=== PATIENT | male | born 1990 | race Caucasian/White ===

== ENCOUNTER 2017-12-14 12:39 | Inpatient (IN) | payer OTHER ==
[2017-12-14 13:15] LABS: BASO # 0.1 K/uL (0.0-0.2); EOS # 0.1 K/uL (0.0-0.7); EOS % 1.1 % (0.0-4.0); HEMOGLOBIN 15.4 g/dL (12.0-18.0); LYMPH # 2.4 K/uL (1.0-4.3); LYMPH % 21.9 % (20.0-40.0); MEAN CELL VOLUME 89.8 fL (80.0-94.0); MEAN CORPUSCULAR HEMOGLOBIN 31.3 pg (27.0-31.0); MEAN CORPUSCULAR HGB CONC 34.9 g/dL (33.0-37.0); MEAN PLATELET VOLUME 7.3 fL (7.2-11.7); MONO # 0.8 K/uL (0.0-0.8); NEUT # 7.4 K/uL (1.8-7.0); RBC 4.94 Mil/uL (4.40-5.90); RED CELL DISTRIBUTION WIDTH 13.1 % (11.5-14.5); WHITE BLOOD COUNT 10.8 K/uL (4.8-10.8)
[2017-12-14 13:17] LABS: URINE BILIRUBIN NEGATIVE (NEGATIVE); URINE BLOOD NEGATIVE (NEGATIVE); URINE CLARITY Clear (Clear); URINE COLOR Amber (YELLOW); URINE GLUCOSE (UA) NORMAL (Normal); URINE LEUKOCYTE ESTERASE NEG Leu/uL (Negative); URINE PROTEIN NEGATIVE (NEGATIVE); URINE UROBILINOGEN NORMAL mg/dL (0.2-1.0)
[2017-12-14 13:30] LABS: ALB/GLOB RATIO 1.3 (1.0-2.1); ALBUMIN 4.6 g/dL (3.5-5.0); ALT/SGPT 276 U/L (21-72); AST/SGOT 149 U/L (17-59); BLOOD UREA NITROGEN 18 mg/dL (9-20); CALCIUM 9.2 mg/dl (8.6-10.4); GFR AFRICAN-AMERICAN > 60; GFR NON-AFRICAN AMERICAN > 60
[2017-12-14 13:31] LABS: BARBITURATES, UR NEGATIVE (NEGATIVE); BENZODIAZEPINES, UR NEGATIVE (NEGATIVE); PHENCYCLIDINE, UR NEGATIVE (NEGATIVE)
[2017-12-14 13:32] LABS: OPIATES, UR POSITIVE (NEGATIVE)
--- NOTE | 2017-12-14 14:05 | C.PDOC ---
History Of Present Illness 27 year old male presents to the ED as a prescreen for heroin detox. Patient states he normally uses around 8-12 bags intravenously per day. He states his last use was around 12 hours ago. Patient also admits to cocaine use, states he drinking socially, and admits to smoking. Patient denies any physical complaints or medical issues at this time. Chief Complaint (Nursing): Substance Abuse History Per: Patient History/Exam Limitations: no limitations Onset/Duration Of Symptoms: Hrs (12) Current Symptoms Are (Timing): Still Present Suicide/Self Injury Attempted (Context): None Modifying Factor(s): Narcotics (heroin), Cocaine Associated Symptoms: denies: Suicidal Thoughts, Suicidal Plan Involuntary Hold By: None Recent travel outside of the [place]: No Additional History Per: Patient Past Medical History Reviewed: Historical Data, Nursing Documentation, Vital Signs Vital Signs: Last Vital Signs Temp 98.2 F 12/14/17 15:19 Pulse 65 12/14/17 15:19 Resp 18 12/14/17 15:19 BP 125/86 12/14/17 15:19 Pulse Ox 99 12/14/17 15:19 - Medical History PMH: No Chronic Diseases Denies: Diabetes, Hepatitis, HIV, HTN, Seizures, Sexually Transmitted Disease Surgical History: No Surg Hx Family History: States: Unknown Family Hx - Social History Hx Tobacco Use: Yes Hx Alcohol Use: Yes Hx Substance Use: Yes - Immunization History Hx Tetanus Toxoid Vaccination: Yes Hx Influenza Vaccination: Yes Hx Pneumococcal Vaccination: No Review Of Systems Psych: Positive for: Other (heroin detox ). Negative for: Suicidal ideation Physical Exam - Physical Exam Appears: Non-toxic, No Acute Distress Skin: Normal Color, Warm, Dry Head: Atraumatic, Normacephalic Eye(s): bilateral: Normal Inspection Oral Mucosa: Moist Neck: Supple Chest: Symmetrical, No Deformity, No Tenderness Cardiovascular: Rhythm Regular, No Murmur Respiratory: Normal Breath Sounds, No Rales, No Rhonchi, No Wheezing Extremity: Normal ROM, Capillary Refill (less than 2 seconds ) Neurological/Psych: Oriented x3, Normal Speech, Normal Cognition ED Course And Treatment - Laboratory Results Result Diagrams: 12/14/17 13:10 12/14/17 13:10 O2 Sat by Pulse Oximetry: 97 (on RA) Pulse Ox Interpretation: Normal Medical Decision Making Medical Decision Making: Impression: 27 year old male requesting heroin detox Plan: * bloodwork * urinalysis * reassess and disposition Progress: Bloodwork and UA ordered and reviewed. Patient has been medically cleared. Disposition - Disposition Disposition: HOSPITALIZED Disposition Time: 14:40 Condition: STABLE - Clinical Impression Clinical Impression: Drug dependence, Drug abuse - Scribe Statement The provider has reviewed the documentation as recorded by the Scribe (Haylie Joshi) Provider Attestation: All medical record entries made by the Scribe were at my direction and personally dictated by me. I have reviewed the chart and agree that the record accurately reflects my personal performance of the history, physical exam, medical decision making, and the department course for this patient. I have also personally directed, reviewed, and agree with the discharge instructions and disposition.
--- NOTE | 2017-12-14 14:46 | PCM.BM ---
<Arturo Amador - Last Filed: 12/14/17 14:43> Treatment Plan Problems - Problems identified on initial assessmt potential for opiate withdrawal Date Initiated: 12/14/17 Time Initiated: 14:30 Status: Active Treatment assets and liabiliti Patient Assests: cooperative, self-reliant, ADL independent, cognitively intact Patient Liabilities: live alone, poor support system, substance abuse - Milieu Protocol Maintain good personal hygiene: daily Encourage regular showers, daily Remind patient to perform daily oral care, daily Assist patient to perform ADL's Conduct patient checks and document Observation sheet: Q15 minutes Maintain personal safety: every shift Educate patient to report safety concerns to staff, every shift Monitor environment for contraband/sharps Medication safety: Monitor for expected outcome, potential side effects: daily, Assess barriers to learning: daily, Assess readiness for medication education: daily <Barb Bruner - Last Filed: 12/15/17 09:55> - Diagnosis (1) Opioid use disorder, severe, dependence Status: Acute Interventions: 12/15/17 09:55 * Assess 7x/week regarding severity of withdrawal * Educate regarding risks, benefits, side effects and alternatives of medications * Use Motivational Interviewing for abstinence * Use CBT for relapse prevention * Medication management for withdrawal symptoms * Encourage medication assisted treatment * (2) Alcohol use disorder, severe, dependence Status: Acute Interventions: 12/15/17 09:55 * Assess 7x/week regarding severity of withdrawal * Educate regarding risks, benefits, side effects and alternatives of medications * Use Motivational Interviewing for abstinence * Use CBT for relapse prevention * Medication management for withdrawal symptoms * Encourage medication assisted treatment * <Monika Rushing - Last Filed: 12/18/17 14:07> Family Contact Family involvement: Famliy/SO not involved - Goals for Treatment Patient goals for treatment: Complete detox and transtion to [facility] [place]. Discharge/Continuing Care - Education Needs Education Needs: Patient Medication, Patient Diagnosis/Disease Process, Patient Coping Skills, Patient Anger Management skills, Patient Placement options, Patient Community resources - Discharge Discharge Criteria: No longer exhibiting s/s of withdrawal, Reduction of target symptoms Discharge to:: Substance Abuse Rehab - Treatment Team Participation Patient/Family/SO Statement: 12/18/17 14:06 "I already know where I wanna go...to the [facility]..." Discussed with Family/SO: No Was Patient/Family/SO present at Treatment Team Meeting: Yes
[2017-12-15] MEDS ORDERED: Buprenorphine Hydrochloride 2 mg SL ONE ×2 (09:50→11:00)
--- NOTE | 2017-12-15 09:55 | PCM.PSYCH ---
Initial Psychiatric Evaluation - Initial Psychiatric Evaluation Type of Admission: Voluntary Legal Status: Capacity Chief Complaint (in patient's own words): "Not good" History of Present Illness and Precipitating Events: The patient is seen, chart reviewed and case discussed. This is a 27-year-old male, single with no child, lives with parents currently, unemployed. The patient is here for heroin detox; using 10-12 bags IV and last 9 years. He was in detox up to 5 times and rehabilitation also 5 times. He uses cocaine the last 6 years, but every other day. He drinks alcohol vodka 1 lt a day and has withdrawal symptoms when he doesn't. However, he currently denies any and it's been 2 days. He denies other drugs but uses cigarettes half pack per day. He goes to AA sometimes. No seizures or DTs. Past psych history: Denies Family psych history: Denies Medical history: Liver enzymes elevated. Current Medications: Active Medications Generic Name Dose Route Start Last Admin Trade Name Freq PRN Reason Stop Dose Admin Buprenorphine HCl 2 mg 12/15/17 09:50 Subutex SL 12/15/17 09:51 ONCE ONE Buprenorphine HCl 6 mg 12/15/17 11:00 Subutex SL 12/15/17 11:01 ONCE ONE Clonidine HCl 0.1 mg 12/14/17 17:26 Catapres PO Q8 PRN COWS Score More or Equal to 5 Dicyclomine HCl 10 mg 12/14/17 17:27 Bentyl PO Q6H PRN gastric spasms Gabapentin 300 mg 12/15/17 10:00 Neurontin PO TID JEFF Hydroxyzine HCl 50 mg 12/14/17 17:08 Atarax PO Q6H PRN Anxiety Loperamide HCl 2 mg 12/14/17 17:27 Imodium PO Q8 PRN Diarrhea Lorazepam 1 mg 12/15/17 09:52 Ativan PO Q6H PRN alcohol withdrawal max 3x/24h Nicotine 1 patch 12/15/17 10:00 Nicoderm Cq TD DAILY JEFF Ondansetron HCl 4 mg 12/14/17 17:27 Zofran Tab PO Q8 PRN Nausea/Vomiting Trazodone HCl 100 mg 12/14/17 17:08 Desyrel PO HS PRN Insomnia Past Psychiatric History - Past Psychiatric History Previous Treatment History: None Pertinent Medical Hx (Current Medical&Sleep Prob, Allergies): Allergies Allergy/AdvReac Type Severity Reaction Status Date / Time No Known Allergies Allergy Unverified 12/14/17 12:57 No Known Home Med 12/14/17 Review of Systems - Psychiatric Psychiatric: Abnormal Sleep Pattern, Anxiety, Difficulty Concentrating. absent : Hallucinations, Homicidal Ideation, Paranoia, Suicidal Ideation Mental Status Examination - Personal Presentation Personal Presentation: Looks stated age - Affect Affect: Constricted - Motor Activity Motor Activity: Calm - Reliability in Providing Information Reliability in Providing Information: Good - Speech Speech: Organized - Mood Mood: Anxious - Formal Thought Process Formal Thought Process: No Impairment - Cognitive Functions Orientation: Person, Place, Situation, Time Sensorium: Alert Attention/Concentration: Attentive Estimate of Intelligence: Average Judgement: Imparied, as evidence by: Poor judgement Memory: Recent intact, as evidence by: Ability to recall events of the day, Remote intact, as evidenced by: Abilit to recall sig. life events - Risk Risk: Withdrawal, Diminished functioning - Strength & Assets Inventory Strength & Assets Inventory: Cooperative - Limitations Limitations: Living alone DSM 5 DX - DSM 5 DSM 5 Diagnosis: Opioid withdrawal Opioid use d/o - severe Cocaine use - severe Alcohol use d/o - severe Alcohol withdrawal - Recommended/Plan of Treatment Treatment Recommendations and Plan of Treatment: Subutex detox As needed medications, especially ativan for alcohol Gabapentin for augmentation if needed All risks, benefits and alternatives of medications, including no medications, discussed and the patient understood and agreed. Lab tests ordered Attend groups and activities Supportive therapy and psychoeducation [place] for abstinence CBT for relapse prevention Encourage MAT Refer to rehab or IOP Attend self-help groups as well [place] for smoking cessation and patch if needed 34 min Projected ELOS: 4-5 days Prognosis: good w treatment - Smoking Cessation Smoking Cessation Initiated: Yes
[2017-12-15] MEDS: Multiple Vitamins Tab PO SCH (10:52)
[2017-12-16 09:17] LABS: HEPATITIS B SURFACE AG Negative (NEGATIVE)
[2017-12-16 09:22] LABS: HEPATITIS A IGM NEGATIVE (NEGATIVE); HEPATITIS B CORE AB NEGATIVE (NEGATIVE)
[2017-12-16] MEDS ORDERED: Buprenorphine Hydrochloride 2 mg SL SCH (10:00)
[2017-12-16] MEDS: Multiple Vitamins Tab PO SCH (10:42)
[2017-12-16] MEDS: Buprenorphine Hydrochloride 2 mg SL SCH (10:50)
[2017-12-16 11:27] LABS: HEPATITIS C ANTIBODY REACTIVE (NEGATIVE)
--- NOTE | 2017-12-16 13:35 | PCM.PYCHPN ---
Psychiatric Progress Note - Psychiatric Progress Note Patient seen today, length of contact: 16 min Patient Chief Complaint: "So so" Problems Identified/Issues Discussed: The pt is seen, chart reviewed, case discussed with staff. Support given, CBT and [place] used briefly No new symptoms reported, improving slowly and needs more time No SEs from medications, risks discussed. After care discussed hep C + - discussed, he took it well Medication Change: Yes (detox changes daily) Medical Record Reviewed: Yes Mental Status Examination - Cognitive Function Orientation: Person, Place, Situation, Time Memory: Intact Attention: Poor Concentration: Poor Association: WNL Fund of Knowledge: WNL - Mood Mood: Anxious - Affect Affect: Constricted - Speech Speech: Appropriate - Formal Thought Process Formal Thought Process: No Impairment - Suicidal Ideation Suicidal Ideation: No - Homicidal Ideation Homicidal Ideation: No Goal/Treatment Plan - Goal/Treatment Plan Need for Continued Stay: Discharge may exacerbated symptoms, Severe functional impairment Progress Toward Problem(s) and Goals/Treatment Plan: Subutex detox As needed medications, especially ativan for alcohol Gabapentin for augmentation if needed All risks, benefits and alternatives of medications, including no medications, discussed and the patient understood and agreed. Lab tests ordered Attend groups and activities Supportive therapy and psychoeducation [place] for abstinence CBT for relapse prevention Encourage MAT Refer to rehab or IOP Attend self-help groups as well [place] for smoking cessation and patch if needed
[2017-12-17] MEDS: Multiple Vitamins Tab PO SCH (10:38)
[2017-12-17] MEDS ORDERED: Buprenorphine Hydrochloride 2 mg SL ONE (10:39)
[2017-12-17] MEDS: Buprenorphine Hydrochloride 2 mg SL SCH (10:42)
--- NOTE | 2017-12-17 13:20 | PCM.PYCHPN ---
Psychiatric Progress Note - Psychiatric Progress Note Patient seen today, length of contact: 16 min Patient Chief Complaint: "Tired" Problems Identified/Issues Discussed: The pt is seen, chart reviewed, case discussed with staff. The pt is compliant with medications and reports no side-effects. Symptoms are improving but needs more time to stabilize. After care discussed, support and psychoeducation given. He is trying to take less sbx everyday - likely to be able to leave tomorrow Medication Change: Yes (detox changes daily) Medical Record Reviewed: Yes Mental Status Examination - Cognitive Function Orientation: Person, Place, Situation, Time Memory: Intact Attention: Poor Concentration: Poor Association: WNL Fund of Knowledge: WNL - Mood Mood: Anxious - Affect Affect: Constricted - Speech Speech: Appropriate - Formal Thought Process Formal Thought Process: No Impairment - Suicidal Ideation Suicidal Ideation: No - Homicidal Ideation Homicidal Ideation: No Goal/Treatment Plan - Goal/Treatment Plan Need for Continued Stay: Discharge may exacerbated symptoms, Severe functional impairment Progress Toward Problem(s) and Goals/Treatment Plan: Subutex detox As needed medications, especially ativan for alcohol Gabapentin for augmentation if needed All risks, benefits and alternatives of medications, including no medications, discussed and the patient understood and agreed. Lab tests ordered Attend groups and activities Supportive therapy and psychoeducation [place] for abstinence CBT for relapse prevention Encourage MAT Refer to rehab or IOP Attend self-help groups as well [place] for smoking cessation and patch if needed
[2017-12-18] MEDS ORDERED: Buprenorphine Hydrochloride 2 mg SL ONE (10:00)
[2017-12-18] MEDS: Multiple Vitamins Tab PO SCH (11:02)
--- NOTE | 2017-12-18 13:32 | PCM.PYCHPN ---
Psychiatric Progress Note - Psychiatric Progress Note Patient seen today, length of contact: 15 min Patient Chief Complaint: "I am still tired" Problems Identified/Issues Discussed: The pt is seen, chart reviewed, case discussed with staff. The pt is compliant with medications and reports no side-effects. Symptoms are improving but needs more time to stabilize. After care discussed, support and psychoeducation given. He is trying to take less sbx everyday - likely to be able to leave tomorrow Medication Change: Yes (detox changes daily) Medical Record Reviewed: Yes Mental Status Examination - Cognitive Function Orientation: Person, Place, Situation, Time Memory: Intact Attention: Poor Concentration: Poor Association: WNL Fund of Knowledge: WNL - Mood Mood: Anxious - Affect Affect: Constricted - Speech Speech: Appropriate - Formal Thought Process Formal Thought Process: No Impairment - Suicidal Ideation Suicidal Ideation: No - Homicidal Ideation Homicidal Ideation: No Goal/Treatment Plan - Goal/Treatment Plan Need for Continued Stay: Discharge may exacerbated symptoms, Severe functional impairment Progress Toward Problem(s) and Goals/Treatment Plan: Subutex detox As needed medications, especially ativan for alcohol Gabapentin for augmentation if needed All risks, benefits and alternatives of medications, including no medications, discussed and the patient understood and agreed. Lab tests ordered Attend groups and activities Supportive therapy and psychoeducation [place] for abstinence CBT for relapse prevention Encourage MAT Refer to rehab or IOP Attend self-help groups as well [place] for smoking cessation and patch if needed
--- NOTE | 2017-12-19 08:55 | PCM.PYCHDC ---
Mental Status Examination - Mental Status Examination Orientation: Person, Place, Situation, Time Memory: Intact Mood: Neutral Affect: Broad Speech: Appropriate Attention: WNL Concentration: WNL Association: WNL Fund of Knowledge: WNL Formal Thought Process: No Impairment Suicidal Ideation: No Current Homicidal Ideation?: No Discharge Summary - Discharge Note Reason for Hospitalization: Opioid Detox Consultations:: List each consultation separately and include: 1. Reason for request. 2. Findings. 3. Follow-up Summary of Hospital Course include:: 1. Description of specific treatment plan utilized for patients during their course of treatmen. 2. Summarize the time- course for resolution of acute symptoms and/or regressed behaviors. 3. Describe issues identified and worked on during hospitalization. 4. Describe medication utilized. 5. Describe medical problems identified and treated. 6. Reassessment of suicide risk Summary of Hospital Course: On Admission: This is a 27-year-old male, single with no child, lives with parents currently, unemployed. The patient is here for heroin detox; using 10-12 bags IV and last 9 years. He was in detox up to 5 times and rehabilitation also 5 times. He uses cocaine the last 6 years, but every other day. He drinks alcohol vodka 1 lt a day and has withdrawal symptoms when he doesn't. However, he currently denies any and it's been 2 days. He denies other drugs but uses cigarettes half pack per day. He goes to AA sometimes. No seizures or DTs. Past psych history: Denies Family psych history: Denies Medical history: Liver enzymes elevated. Hospital course: The pt was admitted and started on treatment with psychotherapy, support, psychoeducation and medications. [place] and CBT used. The pt attended groups and activities, as well as milieu therapy. All the risks and benefits of medications are discussed and the patient understood and agreed. The pt improved with the treatments provided. After care discussed with the patient. He will got to [facility] - Final Diagnosis (DSM 5) Condition upon Discharge: IMPROVED DSM 5: Opioid withdrawal Opioid use d/o - severe Cocaine use - severe Alcohol use d/o - severe Alcohol withdrawal Disposition: REHAB FACILITY/REHAB UNIT Follow-up Treatment Plan: Continue below medications after discharge. Follow after care plan as discussed. Use relapse prevention skills Return to ER or call 911 if suicidal, homicidal or symptoms relapse. Stay away from stress, alcohol and drugs. See primary doctor regularly and get labs. Prescriptions/Medication Reconciliation: Gabapentin [Neurontin] 300 mg PO TID #90 cap traZODone [Desyrel] 100 mg PO HS PRN #30 tab PRN Reason: Insomnia
[2017-12-19] MEDS: Multiple Vitamins Tab PO SCH (09:38)
[2017-12-19] MEDS ORDERED: Buprenorphine Hydrochloride 2 mg SL ONE (10:00)
[2017-12-19 10:46] VITALS: RESP 19
[2017-12-19 12:50] VITALS: BP 133/75; PULSE 66; TEMP 98.1; O2SAT 98
== END 2017-12-19 14:11 | DRG 745 ==
LOC: C.ER 12:39 → C.7D 14:08
PROVIDERS: ADMIT Psychiatry & Neurology Psychiatry; ATTEND Psychiatry & Neurology Psychiatry
PROC: HZ2ZZZZ Detoxification Services for Substance Abuse Treatment (ICD-10-PCS; principal; 2017-12-14)
PROC: HZ56ZZZ Individual Psychotherapy for Substance Abuse Treatment, Psychoeducation (ICD-10-PCS; 2017-12-14)
PROC: HZ59ZZZ Individual Psychotherapy for Substance Abuse Treatment, Supportive (ICD-10-PCS; 2017-12-14)
PROC: HZ46ZZZ Group Counseling for Substance Abuse Treatment, Psychoeducation (ICD-10-PCS; 2017-12-14)
DX: F11.23 Opioid dependence with withdrawal (principal); F10.239 Alcohol dependence with withdrawal, unspecified; F14.10 Cocaine abuse, uncomplicated; F17.210 Nicotine dependence, cigarettes, uncomplicated

== ENCOUNTER 2018-04-09 20:10 | Inpatient (IN) | payer MEDICAID, OTHER ==
--- NOTE | 2018-04-09 21:25 | C.PDOC ---
History Of Present Illness patient presents wanting detox from heroin and alcohol last used [employer]. Denies any suicidal or homicidal ideation. Pleasant and cooperative Time Seen by Provider: 04/09/18 21:24 Chief Complaint (Nursing): Substance Abuse History Per: Patient History/Exam Limitations: no limitations Onset/Duration Of Symptoms: Days Current Symptoms Are (Timing): Still Present Suicide/Self Injury Attempted (Context): None Modifying Factor(s): Other (heroin) Severity: None Associated Symptoms: Anxiety Involuntary Hold By: None Recent travel outside of the [place]: No Additional History Per: Patient Past Medical History Reviewed: Historical Data, Nursing Documentation, Vital Signs Vital Signs: Last Vital Signs Temp 99 F 04/09/18 20:37 Pulse 110 H 04/09/18 20:37 Resp BP 141/91 H 04/09/18 20:37 Pulse Ox 20 L 04/09/18 21:24 - Medical History PMH: Denies: Diabetes, Hepatitis, HIV, HTN, Seizures, Sexually Transmitted Disease - [facility] Procedures DETOXIFICATION SERVICES FOR SUBSTANCE ABUSE TREATMENT (12/14/17) [facility] FOR SUBSTANCE ABUSE TREATMENT, PSYCHOEDUCATION (12/14/17) INDIV PSYCHOTHERAPY FOR SUBSTANCE ABUSE TREATMENT, SUPPORT (12/14/17) INDIV PSYCHOTHERAPY FOR SUBSTANCE ABUSE, PSYCHOEDUCATION (12/14/17) Family History: States: No Known Family Hx - Social History Hx Tobacco Use: Yes Hx Alcohol Use: Yes Hx Substance Use: Yes - Immunization History Hx Tetanus Toxoid Vaccination: Yes Hx Influenza Vaccination: Yes Hx Pneumococcal Vaccination: No Review Of Systems Constitutional: Negative for: Fever, Chills Cardiovascular: Negative for: Chest Pain Respiratory: Negative for: Shortness of Breath Gastrointestinal: Negative for: Abdominal Pain Musculoskeletal: Negative for: Back Pain Skin: Negative for: Rash Neurological: Negative for: Weakness Psych: Positive for: Anxiety Physical Exam - Physical Exam Appears: Non-toxic, No Acute Distress Skin: Warm, Diaphoretic Head: Normacephalic Eye(s): bilateral: Normal Inspection Neck: Supple Chest: Symmetrical Cardiovascular: Rhythm Regular Respiratory: No Rales, No Rhonchi Gastrointestinal/Abdominal: Soft, No Tenderness Back: Normal Inspection Extremity: Normal ROM Extremity: Bilateral: Atraumatic Neurological/Psych: Oriented x3 Gait: Steady ED Course And Treatment - Laboratory Results Result Diagrams: 04/09/18 21:54 04/09/18 21:54 O2 Sat by Pulse Oximetry: [address] Kelsy Levin Comment: accepted the pt on his service and took over the care at 11:33 PM Doctor Will See Patient In The: Hospital Counseled Patient/Family Regarding: Studies Performed, Diagnosis - Disposition Disposition: HOSPITALIZED Disposition Time: 21:24 Condition: FAIR Forms: [facility] (Kinyarwanda) - POA Present On Arrival: None - Clinical Impression Clinical Impression: Drug dependence, Opioid use disorder, severe, dependence Decision To Admit - Pt Status Changed To: Hospital Disposition Of: Inpatient - Admit Certification Admit to Inpatient:: After my assessment, the patient will require hospitalization for at least two midnights. This is because of the severity of symptoms shown, intensity of services needed, and/or the medical risk in this patient being treated as an outpatient. - InPatient: Physician Admission Certification: I certify that this patient requires 2 or more midnights of care for the following reason:: After my assessment, the patient will require hospitalization for at least two midnights. This is because of the severity of symptoms shown, intensity of services needed, and/or the medical risk in this patient being treated as an outpatient. - . Bed Request Type: Detox Admitting Physician: Kelsy Levin Patient Diagnosis: Drug dependence, Opioid use disorder, severe, dependence
[2018-04-09 22:04] LABS: BASO # 0.1 K/uL (0.0-0.2); BASO % 0.6 % (0.0-2.0); EOS % 0.3 % (0.0-4.0); HEMOGLOBIN 15.5 g/dL (12.0-18.0); MEAN CORPUSCULAR HGB CONC 34.9 g/dL (33.0-37.0); MEAN PLATELET VOLUME 7.3 fL (7.2-11.7); MONO # 1.1 K/uL (0.0-0.8); NEUT % 71.1 % (50.0-75.0); NRBC % 0.1 % (0.0-2.0); RED CELL DISTRIBUTION WIDTH 13.3 % (11.5-14.5); WHITE BLOOD COUNT 11.2 K/uL (4.8-10.8)
[2018-04-09 22:18] LABS: ALB/GLOB RATIO 1.5 (1.0-2.1); ALT/SGPT 96 U/L (21-72); AST/SGOT 59 U/L (17-59); BLOOD UREA NITROGEN 14 mg/dL (9-20); CALCIUM 9.9 mg/dl (8.6-10.4); GFR AFRICAN-AMERICAN > 60; GFR NON-AFRICAN AMERICAN > 60
[2018-04-09 22:52] LABS: SQUAMOUS EPITHIAL < 1 /hpf (0-5); URINE BACTERIA RARE (<OCC); URINE BILIRUBIN NEGATIVE (NEGATIVE); URINE BLOOD NEGATIVE (NEGATIVE); URINE CLARITY Hazy (Clear); URINE COLOR Amber (YELLOW); URINE GLUCOSE (UA) NORMAL (Normal); URINE LEUKOCYTE ESTERASE NEG Leu/uL (Negative); URINE PROTEIN 1+ mg/dL (NEGATIVE)
[2018-04-09 23:04] LABS: BARBITURATES, UR NEGATIVE (NEGATIVE); BENZODIAZEPINES, UR NEGATIVE (NEGATIVE); PHENCYCLIDINE, UR NEGATIVE (NEGATIVE)
[2018-04-09 23:31] LABS: OPIATES, UR POSITIVE (NEGATIVE)
--- NOTE | 2018-04-10 00:07 | PCM.BM ---
<MichelleSera - Last Filed: 04/10/18 00:06> Treatment Plan Problems - Problems identified on initial assessmt Ineffective Coping Skills Date Initiated: 04/10/18 Time Initiated: 00:06 Assessment reference: NA Status: Active Treatment assets and liabiliti Patient Assests: cooperative, self-reliant, ADL independent, cognitively intact Patient Liabilities: financial problems, poor support system, substance abuse, other - Milieu Protocol Maintain good personal hygiene: daily Encourage regular showers, daily Remind patient to perform daily oral care, other Assist patient to perform ADL's (PRN) Maintain personal safety: every shift Educate patient to report safety concerns to staff, every shift Monitor environment for contraband/sharps Medication safety: Monitor for expected outcome, potential side effects: every shift, Assess barriers to learning: every shift, Assess readiness for medication education: every shift <Barb Bruner - Last Filed: 04/10/18 22:47> - Diagnosis (1) Opioid use disorder, severe, dependence Status: Acute Interventions: 04/10/18 22:47 * Assess 7x/week regarding severity of withdrawal * Educate regarding risks, benefits, side effects and alternatives of medications * Use Motivational Interviewing for abstinence * Use CBT for relapse prevention * Medication management for withdrawal symptoms * Encourage medication assisted treatment * (2) Alcohol use disorder, severe, dependence Status: Acute Interventions: 04/10/18 22:47 * Assess 7x/week regarding severity of withdrawal * Educate regarding risks, benefits, side effects and alternatives of medications * Use Motivational Interviewing for abstinence * Use CBT for relapse prevention * Medication management for withdrawal symptoms * Encourage medication assisted treatment * <Monika Rushing - Last Filed: 04/14/18 09:37> Family Contact Family involvement: Famliy/SO not involved - Goals for Treatment Patient goals for treatment: Complete detox and apply for inpatient rehab. Discharge/Continuing Care - Education Needs Education Needs: Patient Medication, Patient Diagnosis/Disease Process, Patient Coping Skills, Patient Anger Management skills, Patient Placement options, Patient Community resources - Discharge Discharge Criteria: No longer exhibiting s/s of withdrawal, Reduction of target symptoms Discharge to:: Substance Abuse Rehab - Treatment Team Participation Patient/Family/SO Statement: 04/14/18 09:37 "I [facility] go [facility] Discussed with Family/SO: No Was Patient/Family/SO present at Treatment Team Meeting: Yes
[2018-04-10] MEDS ORDERED: Aluminum Hydroxide/Magnesium Hydroxide Susp (30 mL) PO PRN (01:04)
[2018-04-10] MEDS ORDERED: guaiFENesin DM 200 mg-20 mg/10 ml UD PO PRN (01:04)
[2018-04-10] MEDS ORDERED: Benzocaine/Menthol (Cepacol) Lozenge PO PRN (01:04)
[2018-04-10] MEDS: Multiple Vitamins Tab PO SCH (10:15)
--- NOTE | 2018-04-10 14:36 | PCM.PSYCH ---
Initial Psychiatric Evaluation - Initial Psychiatric Evaluation Type of Admission: Voluntary Legal Status: Capacity Chief Complaint (in patient's own words): "I need detox from heroin and alcohol." History of Present Illness and Precipitating Events: Pt is seen, chart reviewed, case discussed with staff. Pt is a 27 y/o male who presented to the ED for heroin and alcohol detox; pt lives in [place] with his parents and does not work. Pt has a hx of heroin abuse which began at the age of 20; pt uses 10-15 bags/ day IV into his neck; rarely does pt inject in his arms; pt last used around 2 pm on 04/09. Pt has a hx of alcohol abuse which began at the age of 16 and became a problem at the age of 21; pt drinks 1 liter of vodka per day; pt last drank in the evening on 04/09. Pt uses cocaine a few times per week and denies marijuana, PCP, or LSD. Pt has overdosed and been hospitalized 7-8x. Pt has been to detox 3-4x, once here at ; pt has been to rehab 3x and has attended [facility], and [facility] in the past. Pt's longest sobriety was 4.5 months. Pt states that he feels depressed with feelings of hopelessness and decreased energy; pt denies S/I, H/I, V/H, A/H or paranoia. Pt does not yet describe and display significant withdrawal sxs; pt complains of some nausea and chills. Past med hx is unremarkable; pt reports no hx of seizures in the past. Pt denies any family or psyc hx. Pt reports that he is open to inpatient after detox; pt requests Subutex specifically as it has worked for him in the past. Pt must go to [place] court after detox for a possession charge. Current Medications: Active Medications Generic Name Dose Route Start Last Admin Trade Name Freq PRN Reason Stop Dose Admin Al Hydrox/Mg Hydrox/Simethicone 30 ml 04/10/18 01:04 Maalox 30 Ml PO TID PRN Indigestion / Heartburn Chlordiazepoxide 25 mg 04/10/18 09:58 04/10/18 10:15 Librium PO 25 mg Q4H PRN Administration Alcohol Withdrawal Clonidine HCl 0.1 mg 04/10/18 00:11 Catapres PO Q8H PRN Withdrawal Symptoms Folic Acid 1 mg 04/10/18 10:00 04/10/18 10:15 Folic Acid PO 1 mg DAILY JEFF Administration Hydroxyzine HCl 25 mg 04/10/18 00:10 Atarax PO Q6H PRN Anxiety Ibuprofen 600 mg 04/10/18 08:51 Motrin Tab PO Q6H PRN Pain, moderate (4-7) Loperamide HCl 2 mg 04/10/18 01:04 Imodium PO Q8 PRN Diarrhea Multivitamins 1 tab 04/10/18 10:00 04/10/18 10:15 Hexavitamin PO 1 tab DAILY JEFF Administration Ondansetron HCl 4 mg 04/10/18 01:04 Zofran Tab PO Q8 PRN Nausea/Vomiting Thiamine HCl 100 mg 04/10/18 10:00 04/10/18 10:15 Vitamin B1 Tab PO 100 mg DAILY JEFF Administration Trazodone HCl 50 mg 04/10/18 00:10 Desyrel PO HS PRN Insomnia Past Psychiatric History - Past Psychiatric History Previous Treatment History: None Prior Professional Help: Rehab 3x at [facility] Pertinent Medical Hx (Current Medical&Sleep Prob, Allergies): Allergies Allergy/AdvReac Type Severity Reaction Status Date / Time No Known Allergies Allergy Verified 04/09/18 20:40 Review of Systems - Neurological Neurological: UNREMARKABLE - Psychiatric Psychiatric: Abnormal Sleep Pattern, Anhedonia, Anxiety, Change in Appetite, Depression, Difficulty Concentrating. absent: Auditory Hallucinations, Hallucinations, Homicidal Ideation, Panic Attacks, Paranoia, Suicidal Ideation, Visual Hallucinations Mental Status Examination - Personal Presentation Personal Presentation: Looks stated age - Affect Affect: Constricted, Depressed - Motor Activity Motor Activity: Calm, Psychomotor Retardation - Reliability in Providing Information Reliability in Providing Information: Good - Speech Speech: Organized - Mood Mood: Depressed - Formal Thought Process Formal Thought Process: No Impairment - Obsessions/Compulsions Obsessions: No Compulsions: No - Cognitive Functions Orientation: Person, Place, Situation, Time Sensorium: Drowsy Estimate of Intelligence: Average Judgement: Intact, as evidence by: Insight regarding need for hospitalization Memory: Recent intact, as evidence by: Ability to recall events of the day, Remote intact, as evidenced by: Abilit to recall sig. life events - Risk Risk: Withdrawal, Diminished functioning - Strength & Assets Inventory Strength & Assets Inventory: Cooperative DSM 5 DX - DSM 5 DSM 5 Diagnosis: Opioid Withdrawal Opioid Use Disorder, severe Alcohol Withdrawal Alcohol Use Disorder, severe Depressive d/o - unspecified - Recommended/Plan of Treatment Treatment Recommendations and Plan of Treatment: Taper with Librium and Subutex Gabapentin for augmentation if needed As needed medications, Atarax 25 mg for anxiety, Motrin for pain All risks, benefits and alternatives of the meds discussed, and the pt agreed and understood. Attend groups and activities Supportive therapy and psychoeducation WI for abstinence CBT for relapse prevention Encourage MAT Refer to rehab or IOP, and self-help groups Smoking cessation with WI Nicotine patch if needed 35 min Projected ELOS: 4-5 days Prognosis: good w treatment - Smoking Cessation Smoking Cessation Initiated: Yes
[2018-04-10] MEDS ORDERED: Buprenorphine Hydrochloride 2 mg SL ONE ×2 (16:20→17:20)
[2018-04-11] MEDS: Multiple Vitamins Tab PO SCH (09:46)
[2018-04-11] MEDS: Buprenorphine Hydrochloride 2 mg SL SCH (09:47)
--- NOTE | 2018-04-11 16:20 | PCM.PYCHPN ---
Psychiatric Progress Note - Psychiatric Progress Note Patient seen today, length of contact: 15 minutes Patient Chief Complaint: "I want my meds changed." Problems Identified/Issues Discussed: Pt is seen, chart reviewed, case discussed with staff. Pt is compliant with medications and reports no side-effects; pt requests gabapentin be added to daily regimen. Symptoms are improving but needs more time to stabilize; pt slept well through the night; pt denies n/v/d. Pt attends groups and activities. Support given, psycho-education provided. After care discussed. Medication Change: Yes Medical Record Reviewed: Yes Mental Status Examination - Cognitive Function Orientation: Person, Place, Situation, Time Memory: Intact Attention: Poor Concentration: Poor Association: Loose Fund of Knowledge: Poor - Mood Mood: Depressed - Affect Affect: Constricted, Depressed - Formal Thought Process Formal Thought Process: No Impairment - Suicidal Ideation Suicidal Ideation: No - Homicidal Ideation Homicidal Ideation: No Goal/Treatment Plan - Goal/Treatment Plan Need for Continued Stay: Remain at risks for inpatient hospitalization, Discharge may exacerbated symptoms, Severe functional impairment Progress Toward Problem(s) and Goals/Treatment Plan: Continue medications; Neurontin 300 mg TID added. Support and psychoeducation daily Attend groups and activities daily After care planning by TAB 15 min
[2018-04-12] MEDS: Buprenorphine Hydrochloride 2 mg SL SCH (09:44)
[2018-04-12] MEDS: Multiple Vitamins Tab PO SCH (09:44)
--- NOTE | 2018-04-12 19:08 | PCM.PYCHPN ---
Psychiatric Progress Note - Psychiatric Progress Note Patient seen today, length of contact: 15 minutes Patient Chief Complaint: I thought i would get librium every 4 hours Problems Identified/Issues Discussed: Pt seen examined and discussed with staff Pt was explained that to have librium he had to score. Medical Problems: none reported Diagnostic Results: reviewed DSM 5 Symptoms Update: tremors Medication Change: Yes (taper of subutex) Medical Record Reviewed: Yes Mental Status Examination - Cognitive Function Orientation: Person, Place, Situation, Time Memory: Intact Attention: Poor Concentration: Poor Association: Loose Fund of Knowledge: Poor - Mood Mood: Depressed - Affect Affect: Constricted, Depressed - Speech Speech: Appropriate - Formal Thought Process Formal Thought Process: No Impairment - Suicidal Ideation Suicidal Ideation: No - Homicidal Ideation Homicidal Ideation: No Goal/Treatment Plan - Goal/Treatment Plan Need for Continued Stay: Discharge may exacerbated symptoms, Severe functional impairment Progress Toward Problem(s) and Goals/Treatment Plan: OPIOID WITHDRAWAL SUBUTEX ALCOHOL WITHDRAWAL LIBRIUM PRN OPIOID USE DISORDER SUPPORTIVE PSYCHOTHERAPY GROUP [facility]ERAP[facility] [place] CBT ALCOHOL USE DISORDER GROUP [facility] RECREATIONAL [facility] THERAPY [place] CBT SUPPORTIVE PSYCHOTHERAPY Estimated Date of D/C: 01/12/18
[2018-04-13] MEDS: Multiple Vitamins Tab PO SCH (09:40)
[2018-04-13] MEDS: Buprenorphine Hydrochloride 2 mg SL SCH (09:40)
--- NOTE | 2018-04-13 10:35 | RAD ---
Chest x-ray two views History: Rehab. Comparison: None available. Findings: No focal infiltrate or effusion. Right hilar prominence. Heart size within normal limits. Impression: No focal infiltrate or effusion.
--- NOTE | 2018-04-13 19:34 | PCM.PYCHPN ---
Psychiatric Progress Note - Psychiatric Progress Note Patient seen today, length of contact: 15 minutes Patient Chief Complaint: I FEEL MISERABLE Problems Identified/Issues Discussed: PT SEEN AND EXAMINED DISCUSSED WITH STAFF DISCUSSED WITH PT WHAT HE WANTED AFTERCARE AND HOW SYMPTOMS OF WITHDRAWAL USUALLY PROGRESS Medical Problems: EAR PAIN Diagnostic Results: reviewed DSM 5 Symptoms Update: BODY ACHES CHILLS AND SWEATS Medication Change: Yes (taper of subutex) Medical Record Reviewed: Yes Mental Status Examination - Cognitive Function Orientation: Person, Situation, Time Memory: Intact Attention: WNL Concentration: WNL Association: WNL Fund of Knowledge: WNL - Mood Mood: Depressed, Anxious - Affect Affect: Constricted, Depressed - Speech Speech: Appropriate - Formal Thought Process Formal Thought Process: No Impairment - Suicidal Ideation Suicidal Ideation: No - Homicidal Ideation Homicidal Ideation: No Goal/Treatment Plan - Goal/Treatment Plan Need for Continued Stay: Discharge may exacerbated symptoms, Severe functional impairment Progress Toward Problem(s) and Goals/Treatment Plan: OPIOID WITHDRAWAL SUBUTEX TAPER ALCOHOL WITHDRAWAL LIBRIUM PRN OPIOID USE DISORDER SUPPORTIVE PSYCHOTHERAPY GROUP [facility] GROUP THERAPY AR CBT ALCOHOL USE DISORDER GROUP [facility] RECREATIONAL GROUP THERAPY AR CBT SUPPORTIVE PSYCHOTHERAPY Estimated Date of D/C: 04/15/18 - Smoking Cessation Smoking Cessation Initiated: No
--- NOTE | 2018-04-14 08:50 | PCM.PYCHDC ---
Mental Status Examination - Mental Status Examination Orientation: Person, Place, Situation, Time Memory: Intact Mood: Anxious Affect: Constricted Speech: Appropriate Attention: WNL Concentration: WNL Association: WNL Fund of Knowledge: WNL Formal Thought Process: No Impairment Suicidal Ideation: No Current Homicidal Ideation?: No Discharge Summary - Discharge Note Reason for Hospitalization: Opioid detox Consultations:: List each consultation separately and include: 1. Reason for request. 2. Findings. 3. Follow-up Summary of Hospital Course include:: 1. Description of specific treatment plan utilized for patients during their course of treatmen. 2. Summarize the time- course for resolution of acute symptoms and/or regressed behaviors. 3. Describe issues identified and worked on during hospitalization. 4. Describe medication utilized. 5. Describe medical problems identified and treated. 6. Reassessment of suicide risk Summary of Hospital Course: Pt is seen, chart reviewed, case discussed with staff. On admission: Pt is a 27 y/o male who presented to the ED for heroin and alcohol detox; pt lives in [place] with his parents and does not work. Pt has a hx of heroin abuse which began at the age of 20; pt uses 10-15 bags/ day IV into his neck; rarely does pt inject in his arms; pt last used around 2 pm on 04/09. Pt has a hx of alcohol abuse which began at the age of 16 and became a problem at the age of 21; pt drinks 1 liter of vodka per day; pt last drank in the evening on 04/09. Pt uses cocaine a few times per week and denies marijuana, PCP, or LSD. Pt has overdosed and been hospitalized 7-8x. Pt has been to detox 3-4x, once here at ; pt has been to rehab 3x and has attended [facility], [facility], and [facility] in the past. Pt's longest sobriety was 4.5 months. Pt states that he feels depressed with feelings of hopelessness and decreased energy; pt denies S/I, H/I, V/H, A/H or paranoia. Pt does not yet describe and display significant withdrawal sxs; pt complains of some nausea and chills. Past med hx is unremarkable; pt reports no hx of seizures in the past. Pt denies any family or psyc hx. Pt reports that he is open to inpatient after detox; pt requests Subutex specifically as it has worked for him in the past. Pt must go to [place] [address] after detox for a possession charge. Hospital Course: The pt was admitted and started on treatment with psychotherapy, support, psychoeducation and medications. MO and CBT used. The pt attended groups and activities, as well as milieu therapy. All the risks and benefits of medications are discussed and the patient understood and agreed. The pt improved with the treatments provided. After care discussed with the patient. He will go to [facility] in [place]. - Final Diagnosis (DSM 5) Condition upon Discharge: IMPROVED DSM 5: Opioid Withdrawal Opioid Use Disorder, severe Alcohol Withdrawal Alcohol Use Disorder, severe Depressive d/o - unspecified Disposition: REHAB FACILITY/REHAB UNIT Follow-up Treatment Plan: Continue below medications after discharge. Follow after care plan as discussed. Use relapse prevention skills Return to ER or call 911 if suicidal, homicidal or symptoms relapse. Stay away from stress, alcohol and drugs. See primary doctor regularly and get labs. Prescriptions/Medication Reconciliation: Cyclobenzaprine [Flexeril] 5 mg PO TID #90 tab Gabapentin [Neurontin] 300 mg PO TID #90 cap traZODone [Desyrel] 100 mg PO HS PRN #30 tab PRN Reason: Insomnia - Smoking Cessation Smoking Cessation Medication prescribed: No - Antipsychotic Medications Pt discharged on 2 or more routine antipsychotic medications: No
[2018-04-14] MEDS: Buprenorphine Hydrochloride 2 mg SL SCH (09:24)
[2018-04-14] MEDS: Multiple Vitamins Tab PO SCH (09:24)
[2018-04-14 16:40] VITALS: O2SAT 99
[2018-04-14 19:14] VITALS: RESP 18
--- NOTE | 2018-04-14 22:15 | PCM.PYCHPN ---
Psychiatric Progress Note - Psychiatric Progress Note Patient seen today, length of contact: 15 minutes Patient Chief Complaint: "Not so well" Problems Identified/Issues Discussed: The pt is seen, chart reviewed, case discussed with staff. The pt is compliant with medications and reports no side-effects. Symptoms are improving but needs more time to stabilize. Still has wdw sxs Pt attends groups and activities. Support given, psycho-education provided. After care discussed. He will go to [facility] in [place] tomorrow Medication Change: Yes (taper of subutex) Medical Record Reviewed: Yes Mental Status Examination - Cognitive Function Orientation: Person Memory: Intact Attention: WNL Concentration: Poor Association: WNL Fund of Knowledge: WNL - Mood Mood: Depressed, Anxious - Affect Affect: Constricted, Depressed - Speech Speech: Appropriate - Formal Thought Process Formal Thought Process: No Impairment - Suicidal Ideation Suicidal Ideation: No - Homicidal Ideation Homicidal Ideation: No Goal/Treatment Plan - Goal/Treatment Plan Need for Continued Stay: Discharge may exacerbated symptoms, Severe functional impairment Progress Toward Problem(s) and Goals/Treatment Plan: Continue medications; Support and psychoeducation daily Attend groups and activities daily After care planning by TAB Estimated Date of D/C: 04/15/18 If changed, why: needs more time and guarantee to go to rehab directly
[2018-04-15 08:51] VITALS: BP 118/87; PULSE 75; TEMP 97.5
== END 2018-04-15 08:53 | disposition home or self-care (01) | DRG 745 ==
LOC: C.ER 20:10 → C.9E 23:32 → C.7D 04-10 00:02
PROVIDERS: ADMIT Psychiatry & Neurology Psychiatry; ATTEND Psychiatry & Neurology Psychiatry
PROC: HZ2ZZZZ Detoxification Services for Substance Abuse Treatment (ICD-10-PCS; principal; 2018-04-09)
PROC: HZ52ZZZ Individual Psychotherapy for Substance Abuse Treatment, Cognitive-Behavioral (ICD-10-PCS; 2018-04-09)
PROC: HZ59ZZZ Individual Psychotherapy for Substance Abuse Treatment, Supportive (ICD-10-PCS; 2018-04-09)
PROC: HZ56ZZZ Individual Psychotherapy for Substance Abuse Treatment, Psychoeducation (ICD-10-PCS; 2018-04-09)
PROC: HZ42ZZZ Group Counseling for Substance Abuse Treatment, Cognitive-Behavioral (ICD-10-PCS; 2018-04-09)
PROC: HZ46ZZZ Group Counseling for Substance Abuse Treatment, Psychoeducation (ICD-10-PCS; 2018-04-09)
PROC: GZHZZZZ Group Psychotherapy (ICD-10-PCS; 2018-04-09)
PROC: GZ58ZZZ Individual Psychotherapy, Cognitive-Behavioral (ICD-10-PCS; 2018-04-09)
PROC: GZ56ZZZ Individual Psychotherapy, Supportive (ICD-10-PCS; 2018-04-09)
DX: F11.23 Opioid dependence with withdrawal (principal); F10.230 Alcohol dependence with withdrawal, uncomplicated; F14.90 Cocaine use, unspecified, uncomplicated; F32.9 Major depressive disorder, single episode, unspecified; Z87.891 Personal history of nicotine dependence; Y90.7 Blood alcohol level of 200-239 mg/100 ml